=== PATIENT | male | born 1960 | race Caucasian/White ===

== ENCOUNTER 2017-11-09 09:55 | Emergency (ER) | payer MEDICAID ==
[2017-11-09 10:10] VITALS: BP 146/98
--- NOTE | 2017-11-09 10:46 | EDPHY ---
H & P Time Seen by Provider: 11/09/17 10:12 HPI/ROS: CHIEF COMPLAINT: Splinter right foot HISTORY OF PRESENT ILLNESS: 57-year-old male presents to the emergency department with a splinter in his right foot. The patient states that he has a history of plantar fasciitis and has been trying to walk more barefoot and somehow was walking got a piece of wood in his foot. He did not try taking this out. He thinks that it has only been there for a few hours. No treatment at home. Patient's tetanus shot is current. ROS: Denies numbness or tingling in his toes, pain in his right ankle or calf. Past Medical/Surgical History: Hypertension, orthopedic surgery Social History: and lives in [place] Smoking Status: Never smoked Physical Exam: On examination the patient has a small foreign body in the plantar aspect of the right foot overlying metatarsal heads. It is small. This was easily removed with forceps. He has no evidence of retained foreign body after the piece of wood was removed. Minimally tender to palpate. No purulent drainage expressed. No redness. No lymphangitis. No bony tenderness. Constitutional: Initial Vital Signs Temperature (C) 36.6 C 11/09/17 10:08 Heart Rate 56 L 11/09/17 10:08 Respiratory Rate 16 11/09/17 10:08 Blood Pressure 146/98 H 11/09/17 10:08 O2 Sat (%) 95 11/09/17 10:08 O2 Delivery Mode Room Air Allergies/Adverse Reactions: No Known Allergies Allergy (Unverified 11/09/17 10:10) Home Medications: Medication Instructions Recorded Lisinopril 20 mg PO 11/09/17 MDM/Departure - [facility] ED Course/Re-evaluation: 49-year-old male with foreign body to the right foot. Foreign body was easily removed. I do not think x-rays are indicated. No bony tenderness. Patient was encouraged to soak his foot. Patient was given wound care precautions. - Depart Disposition: Home, Routine, Self-Care Clinical Impression: Foreign body in right foot Qualifiers: Encounter type: initial encounter Qualified Code(s): S90.851A - Superficial foreign body, right foot, initial encounter Condition: Good Instructions: Soft Tissue Foreign Body (ED) Additional Instructions: Soak your foot in warm water 15-20 min every 3-4 hours especially today and tomorrow to prevent infection. Apply antibiotic ointment as discussed. Return if you develop redness, pain, fever, purulent drainage, or if you feel worse in any way. 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
== END 2017-11-09 11:08 | disposition home or self-care (01) ==
DX: S90.851A Superficial foreign body, right foot, initial encounter (principal); I10 Essential (primary) hypertension; X58.XXXA Exposure to other specified factors, initial encounter; Y99.8 Other external cause status; Y93.01 Activity, walking, marching and hiking

== ENCOUNTER 2018-06-08 08:24 | Emergency (ER) | payer MEDICAID ==
[2018-06-08] MEDS ORDERED: NS 1,000 ML IV ONE (09:26)
[2018-06-08] MEDS ORDERED: methylPREDNISolone SOD SUCC 125 MG/2 ML VIAL IVP ONE (09:26)
[2018-06-08] MEDS ORDERED: DIAZEPAM 5 MG/ML 1 ML SYR IVP ONE (09:26)
--- NOTE | 2018-06-08 09:26 | EDPHY ---
General Time Seen by Provider: 06/08/18 09:20 Narrative: CHIEF COMPLAINT: Back pain HISTORY OF PRESENT ILLNESS: Patient presents per private vehicle with complaints of low back pain. This lumbar pain, left greater than right. It has been present for many years with an underlying diagnosis of spinal stenosis there. He has increasing pain and muscle spasm. He says that it is radiating down to the thighs involving spasms and pain only. He has no numbness, tingling or weakness. He has no incontinence of bowel or bladder. He has had the symptoms remotely and knows what to watch for and denies there currently happening. He is able to ambulate but it is painful to do so. He has no new trauma or injury, but does say that he did "overdo it a little bit yesterday" with his activity level. Denies any fever, low back surgery or history of IV drug abuse. No other associated complaints or modifying factors. REVIEW OF SYSTEMS: 10 systems were reviewed and negative with the exception of the elements mentioned in the history of present illness. PCP: [facility] SPECIALISTS: Physical therapy for back pain PAST MEDICAL HISTORY: Low back pain and spinal stenosis, hypertension, orthopedic PAST SURGICAL HISTORY: Orthopedic surgery SOCIAL HISTORY: Denies tobacco, alcohol or drug use. Currently works. FAMILY HISTORY: Noncontributory EXAMINATION: Vitals: Triage VS reviewed General Appearance: Alert, no distress. Laying in left lateral decubitus Head: normocephalic, atraumatic Eyes: Pupils equal and round, no conjunctival pallor or injection ENT, Mouth: Mucous membranes moist Neck: Normal inspection, supple, non-tender. No meningismus Respiratory: Lungs are clear to auscultation Cardiovascular: Regular rate and rhythm. No murmur Back: Tenderness of the lumbar paraspinous musculature, left greater than right. There is no midline tenderness, crepitus or deformity. Neurological: GCS 15. A&O, nonfocal, antalgic but steady gait. Light sensory symmetric in lower extremities. Patellar reflexes are symmetric at 2+. Strength is symmetric in the hips, knees, ankles. Normal proprioception of the great toes. Skin: Warm and dry, no rash. No cellulitis or abscess over the low back. Extremities: Nontender, no pedal edema. Range of motion symmetric. Psychiatric: Mood and affect normal DIFFERENTIAL DIAGNOSES: Including but not limited to lumbar radiculopathy, sciatica, acute cord compression, epidural abscess, epidural hematoma MDM: 9:20 a.m. Acute on chronic low back pain with muscle spasms described. Patient is neuro intact with no signs of acute cord compression or cauda equina. I have ordered x-ray of the low back as well as symptomatic medications. He has only been taking ibuprofen and Tylenol. No recent steroids or muscle relaxants. 10:20 a.m. I have reviewed the findings from the plain film read by Dr. Mendez. I have re- evaluated the patient. We discussed these findings. He says that he is feeling a little bit better and would like to go home. He is requesting medications for symptoms. I do feel it is reasonable as there is no evidence of acute cord compression. I have reviewed his [employer] report as no previous narcotics in the past year. Discussed discharge home with these medications and follow up with [facility] or neurosurgeon for definitive care of the low back pain and findings on the x-ray. We discussed ED precautions for worsening pain, numbness, tingling, weakness, incontinence of bowel or bladder, fever or retention of bowel bladder. He is comfortable this plan. He is ambulatory without difficulty and discharged home stable condition SUPERVISION: This patient was independently evaluated without direct involvement of or examination by the attending physician. CONSULTATION: None. Spine referral - Diagnostics Imaging Results: Imaging Impressions Lumbar Spine X-Ray 06/08/18 09:51 Impression: 1. Minimal posterior subluxation of L1 on L2 and mild anterior subluxation of L4 and L5 as detailed above. 2. Moderate disk space narrowing upper and lower lumbar spine as detailed above with mild changes mid lumbar spine. Imaging: I viewed and interpreted images myself - History History Review: I reviewed the patient's medical records Smoking Status: Never smoked - Objective Vital Signs: Initial Vital Signs Temperature (C) 97.3 F 06/08/18 08:27 Heart Rate 66 06/08/18 08:27 Respiratory Rate 18 06/08/18 08:27 Blood Pressure 190/105 H 06/08/18 08:27 O2 Sat (%) 94 06/08/18 08:27 O2 Delivery Mode Room Air Allergies/Adverse Reactions: No Known Allergies Allergy (Unverified 06/08/18 08:30) Home Medications: Medication Instructions Recorded Lisinopril 20 mg PO 11/09/17 Cyclobenzaprine [Flexeril 10 MG 10 mg PO TID PRN #15 tab 06/08/18 (*)] methylPREDNISolone [Medrol Dose 1 each PO AD #1 ea 06/08/18 Brandon] oxyCODONE HCL/ACETAMINOPHEN 1 each PO Q4-6PRN PRN #7 tablet 06/08/18 [Percocet 5-325 mg Tablet] Medications Given: Discontinued Medications Diazepam (Valium) 5 mg IVP EDNOW ONE Stop: 06/08/18 09:27 Last Admin: 06/08/18 09:42 Dose: 5 mg Sodium Chloride (Ns) 1,000 mls @ 0 mls/hr IV EDNOW ONE; Wide Open PRN Reason: Protocol Stop: 06/08/18 09:27 Last Admin: 06/08/18 09:42 Dose: 1,000 mls Methylprednisolone Sodium Succinate (Solu-Medrol) 125 mg IVP EDNOW ONE Stop: 06/08/18 09:27 Last Admin: 06/08/18 09:43 Dose: 125 mg Departure - Departure Disposition: Home, Routine, Self-Care Clinical Impression: Lumbar degenerative disc disease, Lumbar radicular pain Condition: Good Instructions: Lumbar Radiculopathy (ED), Lower Back Exercises (ED) Additional Instructions: 1. Medications as prescribed 2. Contact [facility] and/or neurosurgeon for outpatient definitive care 3. ED precautions for any worsening pain, numbness, tingling, weakness, inability to ambulate, incontinence of bowel or bladder, fever or retention of bowel or bladder Referrals: [facility] [Outside] - As per Instructions Tejas Brantley MD [Medical Doctor] - As per Instructions Prescriptions: Cyclobenzaprine [Flexeril 10 MG (*)] 10 mg PO TID PRN #15 tab PRN Reason: Spasms methylPREDNISolone [Medrol Dose Brandon] 1 each PO AD #1 ea oxyCODONE HCL/ACETAMINOPHEN [Percocet 5-325 mg Tablet] 1 each PO Q4-6PRN PRN #7 tablet PRN Reason: Pain, Breakthrough
[2018-06-08] MEDS ORDERED: OXYCODONE/APAP 5/325 TAB PO ONE (10:25)
[2018-06-08 10:43] VITALS: BP 145/78
== END 2018-06-08 11:41 | disposition home or self-care (01) ==
DX: M51.36 Other intervertebral disc degeneration, lumbar region (principal); E86.9 Volume depletion, unspecified
CPT/HCPCS: 96374; J2930; J3360

== ENCOUNTER 2018-08-17 13:30 | Day surgery (SDC) | payer MEDICAID ==
[2018-08-17] MEDS ORDERED: NALOXONE HCL 0.4 MG/ML INJ IVP PRN (13:39)
[2018-08-17] MEDS ORDERED: FLUMAZENIL 0.5 MG/5 ML MDV IVP PRN (13:39)
[2018-08-17] MEDS ORDERED: fentaNYL 100 MCG/2 ML INJ IVP PRN (13:39)
[2018-08-17] MEDS ORDERED: MEPERIDINE 25 MG/ML SYR IVP PRN (13:39)
[2018-08-17] MEDS ORDERED: MIDAZOLAM 2 MG/2 ML VIAL IVP PRN (13:39)
[2018-08-17] MEDS ORDERED: NS 1,000 ML IV SCH (13:45)
[2018-08-17] MEDS ORDERED: IOPAMIDOL (ISOVUE-M 300) 15 ML VIAL ONE (14:16)
[2018-08-17] MEDS ORDERED: TRIAMCINOLONE ACETONIDE 200 MG/5 ML MDV IM ONE (14:16)
[2018-08-17 17:25] VITALS: BP 135/78
== END 2018-08-17 16:00 | disposition home or self-care (01) ==
LOC: FIMAGING 13:30
PROVIDERS: ATTEND Physician Assistant
DX: M54.16 Radiculopathy, lumbar region (principal)
CPT/HCPCS: J2250; J2310; J3010; J3301; Q9967